=== PATIENT | male | born 1960 | race Caucasian/White ===

== ENCOUNTER 2016-12-10 14:06 | Inpatient (IN) | payer OTHER ==
[2016-12-10 16:11] VITALS: BMI 21.7
--- NOTE | 2016-12-10 16:29 | HP ---
COWS - Scale Resting Pulse: 1= [place] 81-100 Sweatin=Flushed/Facial Moisture Restless Observation: 3= Extraneous Movement Pupil Size: 0= Normal to Room Light Bone or Joint Aches: 2= Severe Diffuse Aches Runny Nose/ Eye Tearin= Runny Nose/Eyes GI Upset > 30mins: 1= Stomach Cramp Tremor Observation: 2= Slight Tremor Visible Yawning Observation: 0= None Anxiety or Irritability: 2=Irritable/Anxious Goose Flesh Skin: 3=Piloerection COWS Score: 18 CIWA Score - CIWA Score Nausea/Vomitin-Mild Nausea/No Vomiting Muscle Tremors: 4-Moderate,w/Arms Extend Anxiety: 4-Mod. Anxious/Guarded Agitation: 4-Moderately Restless Paroxysmal Sweats: 2 Orientation: 1-Uncertain about Date Tacttile Disturbances: 0-None Auditory Disturbances: 0-None Visual Disturbances: 0-None Headache: 0-None Present CIWA-Ar Total Score: 16 Admission ROS S - HPI Chief Complaint: withdrawal sx Allergies/Adverse Reactions: Allergies Allergy/AdvReac Type Severity Reaction Status Date / Time No Known Allergies Allergy Verified 12/10/16 16:10 History of Present Illness: 55 years old male with long history of heroin xanax nicotine dependence, has asthma hiv anixety and depression , longest sobriety 2 years is admitted to detox Exam Limitations: No Limitations - Ebola screening Have you traveled outside of the country in the last 21 days: No Have you had contact with anyone from an Ebola affected area: No Have you been sick,other than usual withdrawal symptoms: No Do you have a fever: No - Review of Systems Constitutional: Chills, Loss of Appetite, Changes in sleep, Unexplained wgt Loss , Other (refuse ensure) EENT: reports: Dental Problems (denture lost able to chew regular food), Other ( eye glasses) Respiratory: reports: Cough, SOB with Exertion Cardiac: reports: No Symptoms Reported GI: reports: Poor Appetite, Poor Fluid Intake, Indigestion, Abdominal cramping : reports: No Symptoms Reported Musculoskeletal: reports: Back Pain, Joint Pain, Muscle Pain, Neck Pain Integumentary: reports: Change in Color (both inner elbows iv heroin) Neuro: reports: Tremors Endocrine: reports: No Symptoms Reported Hematology: reports: No Symptoms Reported Psychiatric: reports: Judgement Intact, Anxious, Depressed Other Systems: Reviewed and Negative Patient History - Patient Medical History Hx Anemia: No Hx Asthma: Yes (Pt is on MDI) Hx Chronic Obstructive Pulmonary Disease (COPD): No Hx Cancer: No Hx Cardiac Disorders: No Hx Congestive Heart Failure: No Hx Hypertension: No Hx Hypercholesterolemia: No Hx Pacemaker: No HX Cerebrovascular Accident: No Hx Seizures: No Hx Dementia: No Hx Diabetes: No Hx Gastrointestinal Disorders: No Hx Liver Disease: No Hx Genitourinary Disorders: No Hx Sexually Transmitted Disorders: No Hx Renal Disease (ESRD): No Hx Thyroid Disease: No Hx Human Immunodeficiency Virus (HIV): Yes (1993) Hx Hepatitis C: No Hx Depression: Yes Hx Suicide Attempt: No Hx Bipolar Disorder: No Hx Schizophrenia: No - Patient Surgical History Past Surgical History: Yes Hx Neurologic Surgery: No Hx Cataract Extraction: No Hx Cardiac Surgery: No Hx Lung Surgery: No Hx Breast Surgery: No Hx Breast Biopsy: No Hx Abdominal Surgery: No Hx Appendectomy: Yes (2007) Hx Cholecystectomy: No Hx Genitourinary Surgery: No Hx Orthopedic Surgery: No Anesthesia Reaction: No - PPD History Previous Implant?: Yes Documented Results: Negative w/o proof Implanted On Prior [facility] Admission?: No PPD to be Administered?: Yes - Smoking Cessation Smoking history: Current every day smoker Have you smoked in the past 12 months: Yes Aproximately how many cigarettes per day: 7 Cigars Per Day: 0 Hx Chewing Tobacco Use: No Initiated information on smoking cessation: Yes 'Breaking Loose' booklet given: 12/10/16 - Substance & Tx. History Hx Alcohol Use: No Hx Substance Use: Yes Substance Use Type: Opiates, Tranquilizers Hx Substance Use Treatment: Yes - Substances Abused Heroin Route: Injection Frequency: Daily Amount used: 7-8 BAGS Age of first use: 18 Date of Last Use: 12/10/16 Alprazolam (Xanax) Route: Oral Frequency: Daily Amount used: 2 MG Age of first use: 16 Date of Last Use: 12/10/16 Family Disease History - Family Disease History Family Disease History: Other: Father (), Mother (), Brother ( ) Admission Physical Exam [facility] - Vital Signs Vital Signs: Vital Signs - 24 hr 12/10/16 16:09 Temperature 98.4 F Pulse Rate 89 Respiratory 18 Rate Blood Pressure 128/94 - Physical General Appearance: Yes: Appropriately Dressed, Mild Distress, Thin, Tremorous, Irritable, Sweating, Anxious, Other (refuse ensure) HEENTM: Yes: Hearing grossly Normal, Normal ENT Inspection, Normocephalic, Normal Voice, Other (few teeth left - able to chew regular food) Respiratory: Yes: Chest Non-Tender, Lungs Clear, Normal Breath Sounds, No Respiratory Distress, No Accessory Muscle Use Neck: Yes: Supple, Trachea in good position Breast: Yes: Breasts Symetrical Cardiology: Yes: Regular Rhythm, Regular Rate, S1, S2 Abdominal: Yes: Normal Bowel Sounds, Non Tender, Soft Genitourinary: Yes: Within Normal Limits Back: Yes: Normal Inspection Musculoskeletal: Yes: full range of Motion, Gait Steady, Back pain Extremities: Yes: Normal Range of Motion, Non-Tender, Tremors, Other (both inner elbows iv heroin) Neurological: Yes: Alert, Motor Strength 5/5, Normal Response, Depressed Affect Integumentary: Yes: Warm, Moist, Track [place] Lymphatic: Yes: Within Normal Limits - Diagnostic (1) Opioid dependence with withdrawal Current Visit: Yes Status: Acute (2) Sedative, hypnotic or anxiolytic dependence with withdrawal, uncomplicated Current Visit: Yes Status: Acute (3) Nicotine dependence Current Visit: Yes Status: Acute Qualifiers: Nicotine product type: cigarettes Substance use status: uncomplicated Qualified Code(s): F17.210 - Nicotine dependence, cigarettes, uncomplicated (4) Asthma Current Visit: Yes Status: Acute Qualifiers: Asthma severity: mild intermittent Asthma complication type: uncomplicated Qualified Code(s): J45.20 - Mild intermittent asthma, uncomplicated (5) HIV (human immunodeficiency virus infection) Current Visit: Yes Status: Acute Comment: own med Cleared for Admission [facility] - Detox or Rehab [facility] Level of Care: Medically Managed Detox Regimen/Protocol: Methadone/Valium [facility] Breath Alcohol Content Breath Alcohol Content: 0 Urine Drug Screen - Results Drug Screen Negative: Yes Urine Drug Screen Results: OPI-Opiates, BZO-Benzodiazepines
[2016-12-10] MEDS ORDERED: P-EPHED 60MG/TRIPROLIDI 2.5MG TABLET PO PRN (16:32)
[2016-12-10] MEDS ORDERED: MAG HYDROX/AL HYDROX/SIMETH 30 ML UNIT-DOSE CUP PO PRN (16:32)
[2016-12-10] MEDS ORDERED: MAGNESIUM CITRATE 300 ML BOTTLE PO PRN (16:32)
[2016-12-10] MEDS ORDERED: ACETAMINOPHEN 325 MG TABLET (FP) PO PRN (16:32)
[2016-12-10] MEDS ORDERED: MAGNESIUM HYDROX 2400MG/30ML ORAL SUSPENSION 30 ML CUP PO PRN (16:32)
[2016-12-10] MEDS ORDERED: NICOTINE POLACRILEX 2 MG GUM BC PRN (16:32)
[2016-12-10] MEDS ORDERED: MENTHOL/PHENOL 1 EACH UD MM PRN (16:32)
[2016-12-10] MEDS ORDERED: guaiFENesin/D-METHORPHAN HB 10 ML UNIT-DOSE CUPS PO PRN (16:32)
[2016-12-10] MEDS ORDERED: IBUPROFEN 400 MG TABLET (FP) PO PRN (16:32)
[2016-12-10] MEDS ORDERED: LOPERAMIDE HCL 2 MG CAPSULE PO PRN (16:32)
[2016-12-10] MEDS ORDERED: ALBUTEROL SO4 6.7 GM HFA INHALER IH PRN (16:34)
[2016-12-10] MEDS ORDERED: METHADONE HCL 10 MG TABLET (FOR DETOX USE ONLY) PO ONE ×2 (18:00→23:00)
[2016-12-10] MEDS ORDERED: diazePAM 5 MG TABLET PO ONE (18:00)
[2016-12-10] MEDS: THIAMINE HCL 100 MG TABLET (FP) PO SCH (22:49)
[2016-12-10] MEDS: diazePAM 5 MG TABLET PO SCH (22:50)
[2016-12-10] MEDS: diphenhydrAMINE HCL 50 MG CAPSULE PO PRN (22:50)
[2016-12-10 23:08] LABS: PH,URINE 6.5 (5.0-8.0); URINE APPEARANCE CLEAR; URINE BILIRUBIN 1+ (NEGATIVE); URINE BLOOD NEGATIVE (NEGATIVE); URINE COLOR LT. YELLOW; URINE GLUCOSE (UA) NEGATIVE (NEGATIVE); URINE KETONE NEGATIVE (NEGATIVE); URINE LEUK ESTERASE NEGATIVE (NEGATIVE); URINE NITRITE NEGATIVE (NEGATIVE); URINE PROTEIN NEGATIVE (NEGATIVE); URINE UROBILINOGEN 0.2 E.U/dl E.U./dl (0.2-1.0)
[2016-12-11] MEDS: diazePAM 5 MG TABLET PO SCH ×3 (05:59→22:20)
--- NOTE | 2016-12-11 08:47 | CONSULT ---
[facility] Psychiatric Consult - Data Additional Comment: Observation. Detox Unit Care Protocol
--- NOTE | 2016-12-11 08:52 | CONSULT ---
[facility] Psychiatric Consult - Data Date of interview: 12/11/16 Admission source: [facility] Identifying data: This is 55 years old male with no psychiatric hospitalization history intoxicated with: Opioids, Xanax and Nicotine Substance Abuse History: Smoking history: Current every day smoker. Have you smoked in the past 12 months: Yes. Aproximately how many cigarettes per day: 7. Cigars Per Day: 0. Hx Chewing Tobacco Use: No. Initiated information on smoking cessation: Yes. 'Breaking Loose' booklet given: 12/10/16. - Substance & Tx. History. Hx Alcohol Use: No. Hx Substance Use: Yes. Substance Use Type : Opiates, Tranquilizers. Hx Substance Use Treatment: Yes. - Substances Abused. Heroin. Route: Injection. Frequency: Daily. Amount used: 7-8 BAGS. Age of first use: 18. Date of Last Use: 12/10/16. Alprazolam (Xanax) . Route: Oral. Frequency: Daily. Amount used: 2 MG. Age of first use: 16. Date of Last Use: 12/10/16 Medical History: Asthma HIV+ Psychiatric History: PPatient reports history of depression, reports taking antidepressants but not remembering doses and names, reports not taking them when relsapses with drugs, denies suicidal history Physical/Sexual Abuse/Trauma History: Denies Additional Comment: Observation. Detox Unit Care Protocol Mental Status Exam - Mental Status Exam Alert and Oriented to: Person Cognitive Function: Fair Patient Appearance: Unkempt Mood: Sad Affect: Mood Congruent Patient Behavior: Cooperative Speech Pattern: Appropriate Voice Loudness: Mildly Soft/Quiet Thought Process: Circumstantial Thought Disorder: Being Controlled Hallucinations: Denies Suicidal Ideation: Denies Homicidal Ideation: Denies Insight/Judgement: Fair Sleep: Difficulty falling asleep Appetite: Weight gain Muscle strength/Tone: Mild Hypotonicity Gait/Station: Shuffling Additional Comments: Observation. Detox Unit Care Protocol Psychiatric Findings - Problem List ([place] 1, 2,3) (1) Nicotine dependence Current Visit: Yes Status: Acute Qualifiers: Nicotine product type: cigarettes Substance use status: uncomplicated Qualified Code(s): F17.210 - Nicotine dependence, cigarettes, uncomplicated (2) Opioid dependence with withdrawal Current Visit: Yes Status: Acute (3) Sedative, hypnotic or anxiolytic dependence with withdrawal, uncomplicated Current Visit: Yes Status: Acute (4) Drug-induced mood disorder Current Visit: Yes Status: Acute - Initial Treatment Plan Initial Treatment Plan: Observation. Detox Unit Care Protocol
[2016-12-11] MEDS ORDERED: METHADONE HCL 10 MG TABLET (FOR DETOX USE ONLY) PO SCH (10:00)
[2016-12-11 10:08] LABS: MCH 28.1 pg (25.7-33.7); MCHC 32.4 g/dl (32.0-35.9); MEAN CELL VOLUME 86.7 fl (80-96); PLATELET COUNT 61 K/MM3 (134-434); RDW 15.5 % (11.9-15.9); WHITE BLOOD COUNT 3.4 K/mm3 (4.0-10.0)
[2016-12-11] MEDS: NICOTINE 14 MG/24 HOURS TOPICAL PATCH TD SCH (10:38)
[2016-12-11] MEDS: diazePAM 5 MG TABLET PO PRN (10:38)
[2016-12-11] MEDS: PRENATAL VITAMINS W/ FOLIC ACID TABLET (FP) PO SCH (10:38)
[2016-12-11] MEDS: PATIENT'S OWN MEDICATION (NON-FORMULARY) (Elviteg/Cobi/Emtric/Tenofo Dis [Stribild Tablet] PO SCH (10:39)
[2016-12-11 10:50] LABS: ALBUMIN 3.4 g/dl (3.4-5.0); ALK PHOS 226 U/L (45-117); ANION GAP 7 (8-16); BILIRUBIN,TOTAL 0.4 mg/dL (0.2-1.0); CALCIUM 8.6 mg/dL (8.5-10.1); CO2 26 mmol/L (21-32); GLUCOSE,RANDOM 93 mg/dL (74-106); SGOT/AST 40 U/L (15-37); SGPT/ALT 28 U/L (12-78); TOT PROT 7.3 g/dl (6.4-8.2)
--- NOTE | 2016-12-11 13:37 | PN ---
[facility] CIWA - CIWA Score Nausea/Vomitin-No Nausea/No Vomiting Muscle Tremors: 4-Moderate,w/Arms Extend Anxiety: 4-Mod. Anxious/Guarded Agitation: 4-Moderately Restless Paroxysmal Sweats: 1-Minimal Palms Moist Orientation: 0-Oriented Tacttile Disturbances: 3-Moderate Itch/Numb/Burn Auditory Disturbances: 0-None Visual Disturbances: 0-None Headache: 0-None Present CIWA-Ar Total Score: 16 S COWS - Scale Resting Pulse: 1= [place] 81-100 Sweatin= Chills/Flushing Restless Observation: 3= Extraneous Movement Pupil Size: 2= Moderately Dilated Bone or Joint Aches: 4=Acute Joint/Muscle Pain Runny Nose/ Eye Tearin= Nasal Congestion GI Upset > 30mins: 1= Stomach Cramp Tremor Observation of Outstretched Hands: 2= Slight Tremor Visible Yawning Observation: 1= 1-2x During Session Anxiety or Irritability: 2=Irritable/Anxious Goose Flesh Skin: 0=Smooth Skin COWS Score: 18 S Progress Note (SOAP) Subjective: ANXIETY,SWEATS,IRRITABILITY. Objective: 12/11/16 13:37 Vital Signs Temperature 97.9 F 12/11/16 10:32 Pulse Rate 92 H 12/11/16 10:32 Respiratory Rate 18 12/11/16 10:32 Blood Pressure 122/76 12/11/16 10:32 O2 Sat by Pulse Oximetry (%) Laboratory Last Values WBC 3.4 K/mm3 (4.0-10.0) L 12/11/16 06:30 RBC 4.26 M/mm3 (4.00-5.60) 12/11/16 06:30 Hgb 12.0 GM/dL (11.7-16.9) 12/11/16 06:30 Hct 37.0 % (35.4-49) 12/11/16 06:30 MCV 86.7 fl (80-96) 12/11/16 06:30 MCHC 32.4 g/dl (32.0-35.9) 12/11/16 06:30 RDW 15.5 % (11.9-15.9) 12/11/16 06:30 Plt Count 61 K/MM3 (134-434) L 12/11/16 06:30 MPV 9.0 fl (7.5-11.1) 12/11/16 06:30 Sodium 139 mmol/L (136-145) 12/11/16 06:30 Potassium 4.2 mmol/L (3.5-5.1) 12/11/16 06:30 Chloride 106 mmol/L (98-107) 12/11/16 06:30 Carbon Dioxide 26 mmol/L (21-32) 12/11/16 06:30 Anion Gap 7 (8-16) L 12/11/16 06:30 BUN 23 mg/dL (7-18) H 12/11/16 06:30 Creatinine 1.0 mg/dL (0.7-1.3) 12/11/16 06:30 Creat Clearance w eGFR > 60 (>60) 12/11/16 06:30 Random Glucose 93 mg/dL (74-106) 12/11/16 06:30 Calcium 8.6 mg/dL (8.5-10.1) 12/11/16 06:30 Total Bilirubin 0.4 mg/dL (0.2-1.0) 12/11/16 06:30 AST 40 U/L (15-37) H 12/11/16 06:30 ALT 28 U/L (12-78) 12/11/16 06:30 Alkaline Phosphatase 226 U/L (45-117) H 12/11/16 06:30 Total Protein 7.3 g/dl (6.4-8.2) 12/11/16 06:30 Albumin 3.4 g/dl (3.4-5.0) 12/11/16 06:30 Urine Color Lt. yellow 12/10/16 22:18 Urine Appearance Clear 12/10/16 22:18 Urine pH 6.5 (5.0-8.0) 12/10/16 22:18 Ur Specific [place] 1.015 (1.001-1.035) 12/10/16 22:18 Urine Protein Negative (NEGATIVE) 12/10/16 22:18 Urine Glucose (UA) Negative (NEGATIVE) 12/10/16 22:18 Urine Ketones Negative (NEGATIVE) 12/10/16 22:18 Urine Blood Negative (NEGATIVE) 12/10/16 22:18 Urine Nitrite Negative (NEGATIVE) 12/10/16 22:18 Urine Bilirubin 1+ (NEGATIVE) H 12/10/16 22:18 Urine Urobilinogen 0.2 e.u/dl E.U./dl (0.2-1.0) 12/10/16 22:18 Ur Leukocyte Esterase Negative (NEGATIVE) 12/10/16 22:18 RPR Titer Nonreactive (NONREACTIVE) 12/11/16 06:30 Assessment: 12/11/16 13:37 WITHDRAWAL SX Plan: CONTINUE DETOX
--- NOTE | 2016-12-11 16:32 | EKG ---
Test Reason : Blood Pressure : / mmHG Vent. Rate : 062 BPM Atrial Rate : 062 BPM P-R Int : 120 ms QRS Dur : 104 ms QT Int : 382 ms P-R-T Axes : 028 045 020 degrees QTc Int : 387 ms NORMAL SINUS RHYTHM NORMAL ECG NO PREVIOUS ECGS AVAILABLE Confirmed by CORKY BRICENO MD ([id number]) on 12/11/2016 4:32:38 PM Referred By: Confirmed By:CORKY BRICENO MD
[2016-12-11] MEDS: diphenhydrAMINE HCL 50 MG CAPSULE PO PRN (22:20)
[2016-12-11] MEDS: THIAMINE HCL 100 MG TABLET (FP) PO SCH (22:20)
[2016-12-12] MEDS: diazePAM 5 MG TABLET PO PRN (05:39)
[2016-12-12] MEDS: diazePAM 5 MG TABLET PO SCH ×2 (10:37→22:22)
[2016-12-12] MEDS: METHADONE HCL 5 MG TABLET (FOR DETOX USE ONLY) PO SCH (10:37)
[2016-12-12] MEDS: PATIENT'S OWN MEDICATION (NON-FORMULARY) (Elviteg/Cobi/Emtric/Tenofo Dis [Stribild Tablet] PO SCH (10:38)
[2016-12-12] MEDS: PRENATAL VITAMINS W/ FOLIC ACID TABLET (FP) PO SCH (10:38)
[2016-12-12] MEDS: NICOTINE 14 MG/24 HOURS TOPICAL PATCH TD SCH (10:39)
[2016-12-12] MEDS: THIAMINE HCL 100 MG TABLET (FP) PO SCH (22:22)
[2016-12-12] MEDS: diphenhydrAMINE HCL 50 MG CAPSULE PO PRN (22:23)
[2016-12-13] MEDS: diazePAM 5 MG TABLET PO SCH ×2 (10:16→22:27)
[2016-12-13] MEDS: PRENATAL VITAMINS W/ FOLIC ACID TABLET (FP) PO SCH (10:16)
[2016-12-13] MEDS: METHADONE HCL 5 MG TABLET (FOR DETOX USE ONLY) PO SCH (10:16)
[2016-12-13] MEDS: PATIENT'S OWN MEDICATION (NON-FORMULARY) (Elviteg/Cobi/Emtric/Tenofo Dis [Stribild Tablet] PO SCH (10:16)
[2016-12-13] MEDS: NICOTINE 14 MG/24 HOURS TOPICAL PATCH TD SCH (10:18)
--- NOTE | 2016-12-13 13:31 | PN ---
[facility] Progress Note (SOAP) Subjective: shaky, anxious,poor sleep sp fall mechanical fall and struck sacrococcygeal area Objective: 12/13/16 13:22 Laboratory Tests 12/10/16 12/11/16 12/11/16 22:18 06:30 06:30 WBC 3.4 L RBC 4.26 Hgb 12.0 Hct 37.0 MCV 86.7 MCHC 32.4 RDW 15.5 Plt Count 61 L MPV 9.0 Sodium 139 Potassium 4.2 Chloride 106 Carbon Dioxide 26 Anion Gap 7 L BUN 23 H Creatinine 1.0 Creat Clearance w eGFR > 60 Random Glucose 93 Calcium 8.6 Total Bilirubin 0.4 AST 40 H ALT 28 Alkaline Phosphatase 226 H Total Protein 7.3 Albumin 3.4 Urine Color Lt. yellow Urine Appearance Clear Urine pH 6.5 Ur Specific [place] 1.015 Urine Protein Negative Urine Glucose (UA) Negative Urine Ketones Negative Urine Blood Negative Urine Nitrite Negative Urine Bilirubin 1+ H Urine Urobilinogen 0.2 e.u/dl Ur Leukocyte Esterase Negative RPR Titer 12/11/16 06:30 WBC RBC Hgb Hct MCV MCHC RDW Plt Count MPV Sodium Potassium Chloride Carbon Dioxide Anion Gap BUN Creatinine Creat Clearance w eGFR Random Glucose Calcium Total Bilirubin AST ALT Alkaline Phosphatase Total Protein Albumin Urine Color Urine Appearance Urine pH Ur Specific [place] Urine Protein Urine Glucose (UA) Urine Ketones Urine Blood Urine Nitrite Urine Bilirubin Urine Urobilinogen Ur Leukocyte Esterase RPR Titer Nonreactive Vital Signs - 24 hr 12/12/16 12/12/16 12/12/16 13:25 17:48 22:15 Temperature 97.4 F L 97.7 F 97.8 F Pulse Rate 69 69 77 Respiratory 18 18 18 Rate Blood Pressure 110/69 110/65 111/69 12/13/16 12/13/16 12/13/16 00:30 03:30 06:37 Temperature 97.8 F Pulse Rate 63 63 Respiratory 18 18 18 Rate Blood Pressure 124/82 12/13/16 12/13/16 09:45 12:40 Temperature 97.5 F L 96.8 F L Pulse Rate 84 77 Respiratory 18 18 Rate Blood Pressure 118/72 114/71 12/13/16 13:23 alert oriented from, neuro intact gait intact full forward bend, negative straight leg raise sacrum intact no redness, swelling, ttp Assessment: 12/13/16 13:31 onoign withdrawal sp fall Plan: continue detox protocol fall protocol #2 and observe
[2016-12-13] MEDS: THIAMINE HCL 100 MG TABLET (FP) PO SCH (22:27)
[2016-12-13] MEDS: diphenhydrAMINE HCL 50 MG CAPSULE PO PRN (22:27)
[2016-12-14] MEDS ORDERED: diazePAM 5 MG TABLET PO SCH (10:00)
[2016-12-14] MEDS ORDERED: METHADONE HCL 10 MG TABLET (FOR DETOX USE ONLY) PO SCH (10:00)
[2016-12-14] MEDS: NICOTINE 14 MG/24 HOURS TOPICAL PATCH TD SCH (10:39)
[2016-12-14] MEDS: PRENATAL VITAMINS W/ FOLIC ACID TABLET (FP) PO SCH (10:39)
[2016-12-14] MEDS: PATIENT'S OWN MEDICATION (NON-FORMULARY) (Elviteg/Cobi/Emtric/Tenofo Dis [Stribild Tablet] PO SCH (10:39)
--- NOTE | 2016-12-14 16:04 | PN ---
[facility] Progress Note (SOAP) Subjective: Anxious, restless, interrupted sleep Objective: 12/14/16 16:02 Last Vital Signs Temp Pulse Resp BP Pulse Ox 97.7 F 86 18 117/71 12/14/16 10:51 12/14/16 10:51 12/14/16 10:51 12/14/16 10:51 Laboratory Tests 12/10/16 12/11/16 12/11/16 22:18 06:30 06:30 WBC 3.4 L RBC 4.26 Hgb 12.0 Hct 37.0 MCV 86.7 MCHC 32.4 RDW 15.5 Plt Count 61 L MPV 9.0 Sodium 139 Potassium 4.2 Chloride 106 Carbon Dioxide 26 Anion Gap 7 L BUN 23 H Creatinine 1.0 Creat Clearance w eGFR > 60 Random Glucose 93 Calcium 8.6 Total Bilirubin 0.4 AST 40 H ALT 28 Alkaline Phosphatase 226 H Total Protein 7.3 Albumin 3.4 Urine Color Lt. yellow Urine Appearance Clear Urine pH 6.5 Ur Specific [place] 1.015 Urine Protein Negative Urine Glucose (UA) Negative Urine Ketones Negative Urine Blood Negative Urine Nitrite Negative Urine Bilirubin 1+ H Urine Urobilinogen 0.2 e.u/dl Ur Leukocyte Esterase Negative RPR Titer 12/11/16 06:30 WBC RBC Hgb Hct MCV MCHC RDW Plt Count MPV Sodium Potassium Chloride Carbon Dioxide Anion Gap BUN Creatinine Creat Clearance w eGFR Random Glucose Calcium Total Bilirubin AST ALT Alkaline Phosphatase Total Protein Albumin Urine Color Urine Appearance Urine pH Ur Specific [place] Urine Protein Urine Glucose (UA) Urine Ketones Urine Blood Urine Nitrite Urine Bilirubin Urine Urobilinogen Ur Leukocyte Esterase RPR Titer Nonreactive Labs noted: bun 23, platelet 61, alk phos 226 Assessment: 12/14/16 16:04 Withdrawal symptoms Noted with azotemia, thrombocytopenia and elevated alkaline phosphatase Plan: Continue detox Azotemia: encouraged to drink more water Thrombocytopenia: monitor for bruising/bleeding Elevated alkaline phosphatase: will repeat LFTs
[2016-12-14] MEDS: THIAMINE HCL 100 MG TABLET (FP) PO SCH (22:19)
[2016-12-14] MEDS: diphenhydrAMINE HCL 50 MG CAPSULE PO PRN (22:20)
[2016-12-15] MEDS ORDERED: METHADONE HCL 5 MG TABLET (FOR DETOX USE ONLY) PO SCH (06:00)
[2016-12-15 06:45] VITALS: BP 115/78; PULSE 72; TEMP 98.7
[2016-12-15] MEDS: PRENATAL VITAMINS W/ FOLIC ACID TABLET (FP) PO SCH (09:29)
[2016-12-15] MEDS: PATIENT'S OWN MEDICATION (NON-FORMULARY) (Elviteg/Cobi/Emtric/Tenofo Dis [Stribild Tablet] PO SCH (09:29)
[2016-12-15] MEDS: NICOTINE 14 MG/24 HOURS TOPICAL PATCH TD SCH (09:29)
--- NOTE | 2016-12-15 10:36 | DS ---
[facility] Detox Discharge Summary Admission Date: 12/10/16 Discharge Date: 12/15/16 - History Present History: Opioid Dependence, Sedative Dependence Pertinent Past History: Asthma HIV - Physical Exam Results Vital Signs: Vital Signs Temperature 98.7 F 12/15/16 06:45 Pulse Rate 72 12/15/16 06:45 Respiratory Rate 18 12/15/16 06:45 Blood Pressure 115/78 12/15/16 06:45 O2 Sat by Pulse Oximetry (%) Laboratory Last Values WBC 3.4 K/mm3 (4.0-10.0) L 12/11/16 06:30 RBC 4.26 M/mm3 (4.00-5.60) 12/11/16 06:30 Hgb 12.0 GM/dL (11.7-16.9) 12/11/16 06:30 Hct 37.0 % (35.4-49) 12/11/16 06:30 MCV 86.7 fl (80-96) 12/11/16 06:30 MCHC 32.4 g/dl (32.0-35.9) 12/11/16 06:30 RDW 15.5 % (11.9-15.9) 12/11/16 06:30 Plt Count 61 K/MM3 (134-434) L 12/11/16 06:30 MPV 9.0 fl (7.5-11.1) 12/11/16 06:30 Sodium 139 mmol/L (136-145) 12/11/16 06:30 Potassium 4.2 mmol/L (3.5-5.1) 12/11/16 06:30 Chloride 106 mmol/L (98-107) 12/11/16 06:30 Carbon Dioxide 26 mmol/L (21-32) 12/11/16 06:30 Anion Gap 7 (8-16) L 12/11/16 06:30 BUN 23 mg/dL (7-18) H 12/11/16 06:30 Creatinine 1.0 mg/dL (0.7-1.3) 12/11/16 06:30 Creat Clearance w eGFR > 60 (>60) 12/11/16 06:30 Random Glucose 93 mg/dL (74-106) 12/11/16 06:30 Calcium 8.6 mg/dL (8.5-10.1) 12/11/16 06:30 Total Bilirubin 0.4 mg/dL (0.2-1.0) 12/11/16 06:30 AST 40 U/L (15-37) H 12/11/16 06:30 ALT 28 U/L (12-78) 12/11/16 06:30 Alkaline Phosphatase 226 U/L (45-117) H 12/11/16 06:30 Total Protein 7.3 g/dl (6.4-8.2) 12/11/16 06:30 Albumin 3.4 g/dl (3.4-5.0) 12/11/16 06:30 Urine Color Lt. yellow 12/10/16 22:18 Urine Appearance Clear 12/10/16 22:18 Urine pH 6.5 (5.0-8.0) 12/10/16 22:18 Ur Specific [place] 1.015 (1.001-1.035) 12/10/16 22:18 Urine Protein Negative (NEGATIVE) 12/10/16 22:18 Urine Glucose (UA) Negative (NEGATIVE) 12/10/16 22:18 Urine Ketones Negative (NEGATIVE) 12/10/16 22:18 Urine Blood Negative (NEGATIVE) 12/10/16 22:18 Urine Nitrite Negative (NEGATIVE) 12/10/16 22:18 Urine Bilirubin 1+ (NEGATIVE) H 12/10/16 22:18 Urine Urobilinogen 0.2 e.u/dl E.U./dl (0.2-1.0) 12/10/16 22:18 Ur Leukocyte Esterase Negative (NEGATIVE) 12/10/16 22:18 RPR Titer Nonreactive (NONREACTIVE) 12/11/16 06:30 labs noted Pertinent Admission Physical Exam Findings: withdrawal symptoms - Treatment Hospital Course: Detox Protocol Followed, Detoxed Safely, Responded well, Discharged Condition Good - Medication Discharge Medications: Ambulatory Orders Albuterol Sulfate Inhaler - [Ventolin Hfa Inhaler -] 2 inh PO Q4H PRN 12/10/16 Elviteg/Qian/Emtric/Tenofo Dis [Stribild Tablet] 1 each PO DAILY 12/10/16 - Diagnosis (1) Asthma Status: Acute Qualifiers: Asthma severity: mild intermittent Asthma complication type: uncomplicated Qualified Code(s): J45.20 - Mild intermittent asthma, uncomplicated (2) Drug-induced mood disorder Status: Acute (3) HIV (human immunodeficiency virus infection) Status: Acute (4) Nicotine dependence Status: Acute Qualifiers: Nicotine product type: cigarettes Substance use status: uncomplicated Qualified Code(s): F17.210 - Nicotine dependence, cigarettes, uncomplicated (5) Opioid dependence with withdrawal Status: Acute (6) Sedative, hypnotic or anxiolytic dependence with withdrawal, uncomplicated Status: Acute - AMA Did Patient Leave Against Medical Advice: No
== END 2016-12-15 10:00 | disposition home or self-care (01) | DRG 773 ==
LOC: YASAS 14:06 → EDSEX 17:38 → Y3N 17:38
PROVIDERS: ADMIT Internal Medicine; ATTEND Internal Medicine
PROC: HZ2ZZZZ Detoxification Services for Substance Abuse Treatment (ICD-10-PCS; principal; 2016-12-10)
DX: F11.23 Opioid dependence with withdrawal (principal); F13.230 Sedative, hypnotic or anxiolytic dependence with withdrawal, uncomplicated; F17.210 Nicotine dependence, cigarettes, uncomplicated; F19.24 Other psychoactive substance dependence with psychoactive substance-induced mood disorder; Z21 Asymptomatic human immunodeficiency virus [HIV] infection status; J45.20 Mild intermittent asthma, uncomplicated
CPT/HCPCS: 36415; 80053; 81003; 85027; 86593; 93005; 93010